=== PATIENT | female | born 1980 | race Caucasian/White ===

== ENCOUNTER 2022-11-22 12:11 | Emergency (ER) | payer MEDICAID ==
[~2022-11-22] VITALS: Ht 160 cm; Wt 68.0 kg
[2022-11-22 12:17] VITALS: O2SAT 100
[2022-11-22] MEDS ORDERED: MECLIZINE 25MG TABLET PO ONE (12:45)
[2022-11-22] MEDS ORDERED: ONDANSETRON 4MG ODT PO ONE (12:45)
[2022-11-22 13:39] LABS: BASOPHILS % 0.5 % (0.0-2.0); EOSINOPHILS % 0.6 % (0.0-5.0); HEMATOCRIT. 36.5 % (36.0-48.0); HEMOGLOBIN. 11.8 g/dL (12.0-16.0); LYMPHOCYTES % 14.9 % (20.0-50.0); MEAN CORPUSCULAR HEMOGLOBIN 22.4 pg (28.0-32.0); MEAN CORPUSCULAR HGB CONC 32.4 g/dL (31.0-37.0); MEAN CORPUSCULAR VOLUME 69.1 fL (81.0-99.0); MONOCYTES % 7.5 % (2.0-8.0); NEUTROPHILS % 76.5 % (40.0-76.0); PLATELET 280 x1000/uL (130-400); RED BLOOD CELL COUNT 5.28 mill/uL (4.2-5.4); RED CELL DISTRIBUTION WIDTH 15.2 % (11.6-14.6); WHITE BLOOD COUNT 10.6 x1000/uL (4.5-11.0)
[2022-11-22 13:43] LABS: ADD RBC MORPHOLOGY YES; DIFFERENTIAL COMMENT 1
[2022-11-22 14:08] LABS: MICROCYTOSIS 3+; PLATELET ESTIMATE NORMAL
[2022-11-22 15:55] LABS: CHLORIDE 103 mEq/L (98-107); INDEX HEMOLYSI 1 (1-3); INDEX ICTERIC 1 (1-4); INDEX LIPEMIC 1 (1-3); POTASSIUM 4.3 mEq/L (3.5-5.1); SODIUM 138 mEq/L (136-145)
[2022-11-22 16:04] LABS: ALANINE AMINOTRANSFERASE 19 IU/L (13-61); ALBUMIN 4.1 g/dL (3.4-5.0); ASPARTATE AMINOTRANSFERASE 15 IU/L (15-37); BILIRUBIN TOTAL 0.3 mg/dL (0.1-1.0); CALCIUM 9.2 mg/dL (8.5-10.1); CARBON DIOXIDE 27 mEq/L (21-32); CREATININE 0.6 mg/dL (0.6-1.3); GLUCOSE 120 mg/dL (70-105); PROTEIN TOTAL 7.8 g/dL (6.0-8.3); UREA NITROGEN BLOOD 11 mg/dL (7-21)
[2022-11-22 16:09] LABS: TROPONIN I HIGH SENSITIVITY < 4 ng/L (<54)
[2022-11-22] MEDS ORDERED: ONDA4TAB11 PO (16:16)
[2022-11-22] MEDS ORDERED: MECL-159 MT (16:16)
[2022-11-22 16:33] VITALS: BP 125/78; PULSE 86; RESP 19; TEMP 97.8
== END 2022-11-22 16:36 | disposition home or self-care (01) ==
LOC: ER 12:31
DX: R42 Dizziness and giddiness (principal)
CPT/HCPCS: 99284; 80053; 85025; 84484; 36415; 93005; J8597; Q0162